=== PATIENT | female | born 1955 | race Two or more races ===

== ENCOUNTER 2019-03-18 11:50 | Inpatient (IN) | payer OTHER ==
[~2019-03-18] VITALS: Ht 157.5 cm; Wt 63.5 kg
[2019-03-18] MEDS ORDERED: ASPIRIN81 M1 (12:04)
[2019-03-18] MEDS ORDERED: LISINOPRIL5 MG (12:04)
[2019-03-19] MEDS ORDERED: PERCOCET 5-3251 EACH PO (11:12)
[2019-03-19] MEDS ORDERED: RECTICARE30 GM TOP (11:13)
== END 2019-03-19 18:01 | disposition home or self-care (01) | DRG 349 ==
LOC: ER 11:50 → EDBD 12:26 → SEC-K 14:32 → SURH 14:32
PROVIDERS: ADMIT Surgery
PROC: 0D8R0ZZ Division of Anal Sphincter, Open Approach (ICD-10-PCS; 2019-03-19)
PROC: 0DBQ7ZZ Excision of Anus, Via Natural or Artificial Opening (ICD-10-PCS; 2019-03-19)
PROC: 3E0T3BZ Introduction of Anesthetic Agent into Peripheral Nerves and Plexi, Percutaneous Approach (ICD-10-PCS; 2019-03-19)
PROC: 06BY0ZC Excision of Hemorrhoidal Plexus, Open Approach (ICD-10-PCS; principal; 2019-03-19 10:00)
DX: K64.5 Perianal venous thrombosis (principal); K62.4 Stenosis of anus and rectum; K60.1 Chronic anal fissure